=== PATIENT | male | born 1970 | race Caucasian/White ===

== ENCOUNTER 2017-04-08 14:45 | Emergency (ER) | payer MEDICAID, SELFPAY ==
[~2017-04-08] VITALS: Ht 193 cm; Wt 75.0 kg
[2017-04-08 14:48] VITALS: BP 138/78
[2017-04-08] MEDS ORDERED: HYDROcodone/APAP 5/325 TABLET PO STA (16:02)
[2017-04-08] MEDS ORDERED: LIDOCAINE 1%, 20ML ONE (16:07)
[2017-04-08] MEDS ORDERED: LIDOCAINE 1%, 20ML SQ ONE (16:30)
== END 2017-04-08 16:58 | disposition home or self-care (01) ==
LOC: ED 16:30
DX: L02.415 Cutaneous abscess of right lower limb (principal); L03.115 Cellulitis of right lower limb; F17.200 Nicotine dependence, unspecified, uncomplicated
CPT/HCPCS: 10060; 99283

== ENCOUNTER 2017-04-14 15:23 | Emergency (ER) | payer MEDICAID ==
[~2017-04-14] VITALS: Ht 193 cm; Wt 76.0 kg
[2017-04-14 15:26] VITALS: BP 122/77
== END 2017-04-14 17:26 | disposition home or self-care (01) ==
LOC: ED 17:00
DX: L02.415 Cutaneous abscess of right lower limb (principal)
CPT/HCPCS: 99282